=== PATIENT | male | born 1950 | race Two or more races ===

== ENCOUNTER → 2016-04-19 | Outpatient (REF) | payer OTHER, BC ==
[~2016-04-19] MED LIST: AMLO25TA PO; ASPI1TAB PO; ATOR1TAB18 PO; BISO5TAB5 PO; FLAG500T PO; HYDR25TAB PO; LISI10TA4 PO; PLAV75TA38 PO; RANE1000 PO; RANO5TAB PO; VITA100066 PO; ZYLO300T4 PO; cipro
== END ==
LOC: M SMT 13:03
PROVIDERS: ATTEND Urology
DX: R31.0 Gross hematuria (principal)

== ENCOUNTER → 2016-05-10 | Outpatient (CLI) | payer BC, MEDICARE ==
[~2016-05-10] MED LIST changes: +ISOVUE-370 76% 100ML VIAL (Q9967) As Ordered ONE
--- NOTE | 2016-05-10 09:15 | REP ---
Clinical: Gross hematuria. Technique: Axial precontrast, contrast enhanced, and delayed images of the abdomen and pelvis using 100 ml Isovue 370 intravenous contrast material coronal and sagittal re-formations. Findings: Evaluation of the urinary tract system demonstrates mild symmetric chronic-appearing perinephric stranding and subtle predominately sub centimeter bilateral simple and benign complex appearing renal cysts which measure up to 17 mm in the right kidney. There is no evidence for nephrolithiasis, hydroureteronephrosis, or mass lesion. Liver, spleen, pancreas, gallbladder, and bilateral adrenal glands are normal. The enteric system is without obstruction or acute inflammatory process pelvis demonstrates normal bladder and age appropriate prostate/seminal vesicles. No ascites. No free air. No intraperitoneal or retroperitoneal adenopathy. Atherosclerotic changes of the aorta and branch vessels noted without aneurysm. Musculoskeletal structures demonstrate age-related changes without focal osseous abnormality. Lung bases demonstrate chronic changes and benign chronic calcified granulomata. Impression: 1. Mild chronic-appearing changes to the kidneys and small primarily sub centimeter bilateral renal cysts. No further urinary tract pathology is appreciated. 2. Age-related changes without further acute intra-abdominal or pelvic pathology appreciated. Signed by Zeus Newman MD 05/10/2016 09:06 A
== END ==
LOC: M RAD 07:12
PROVIDERS: ATTEND Urology
DX: R31.0 Gross hematuria (principal); N28.1 Cyst of kidney, acquired
CPT/HCPCS: 74178; Q9967